=== PATIENT | male | born 1960 | race Caucasian/White ===

== ENCOUNTER → 2022-05-14 | Outpatient (CLI) | payer OTHER ==
[~2022-05-14] MED LIST: ASPIRIN 81M81 MG/TA2 PO; CARDI-OMEGA1000 MG PO; CIPRO 500MG TA500 MG PO; DUO-KAPS1 CAP PO; FLOMAX 0.40.4 MG/CAP PO; FLONASE NASAL S16 GM NS; HCTZ 25MG TAB25 MG PO; NORCO 325 MG-51 TAB PO; OSTEO-BI-FLEX 21 TAB PO; PERCOCET 325 MG1 TA2 PO; REVATIO20 MG PO; SAW PALMETTO6 X PO; [UNRECOGNIZED DRUG - OTHER] PO
== END ==
LOC: COL.RAD 12:35
DX: N28.89 Other specified disorders of kidney and ureter (principal); N20.0 Calculus of kidney
CPT/HCPCS: Q9967

== ENCOUNTER 2022-06-24 08:50 | Day surgery (SDC) | payer OTHER ==
[2022-06-23 08:16] LABS: HEMATOCRIT 44.9 % (42.0-52.0); HEMOGLOBIN 15.3 g/dl (13.5-18.0); MEAN CELL VOLUME 85 fl (80.0-100.0); MEAN CORPUSCULAR HEMOGLOBIN 29 pg (27-31); MEAN CORPUSCULAR HGB CONC 34 g/dl (33.0-37.0); MEAN PLATELET VOLUME 8.7 fl (7.4-10.4); PLATELET COUNT 217 K/mm3 (130-400); REDCELL DISTRIBUTION WIDTH-CV 13.6 % (11.5-14.5)
[2022-06-23 08:37] LABS: CALCIUM 9.6 mg/dL (8.4-10.2); CREATININE, serum 1.12 mg/dL (0.72-1.25); POTASSIUM 3.7 mmol/L (3.5-4.5)
[2022-06-24] VITALS (11 sets, daily range): BP systolic 142–162; BP diastolic 78–87; PULSE 78–93; TEMP 97.6–98.3
[~2022-06-24] VITALS: Ht 176.4 cm; Wt 112.0 kg
[2022-06-24] MEDS ORDERED: COZAAR 50MG50 MG/TAB PO (09:14)
[2022-06-24] MEDS ORDERED: ZOCOR 10MG10 MG PO (09:15)
[2022-06-24] MEDS ORDERED: COLACE 100100 MG/CAP PO (10:55)
[2022-06-24] MEDS ORDERED: NORCO 325 MG-51 TAB PO (10:55)
--- NOTE | 2022-06-24 14:47 | NUR ---
Patient arrived to the unit from PACU AT 1435. Patient alert and oriented. Oxymask in use on 2 Liters. 6 surgical incision in the abdomen dry and intact. Patient denies pain at this time. Patient and family oriented to room and the use of call nayak for an assistance.
[2022-06-25 00:02] VITALS: BP 114/67; PULSE 79; TEMP 98.3
--- NOTE | 2022-06-25 01:25 | NUR ---
SHIFT REPORT FROM MATA HA. PATIENT IN BED ON ROOM ENTRY. HS MEDS PER EMAR. TOLERATED SOME CLEARS FOR DINNER. X5 LAPS CDI WITH GLUE. LOW ABD UMBILICUS CDI AND OPEN TO AIR. WHATLEY TO DD WITH CLEAR YELLOW OUTPUT. PRN KEEGAN AND TYLENOL FOR PAIN. AMBULATED IN HALLS WITH SBA. NOT PASSING GAS YET BUT HAS REPORTED BELCHES. WEANED OFF OF OXYGEN, BUT CPAP IN PLACE AT THIS TIME. DENIES ADDITIONAL NEEDS. CALL LIGHT IN REACH.
[2022-06-25 04:56] VITALS: BP 147/78; PULSE 77; TEMP 97.5
--- NOTE | 2022-06-25 05:45 | NUR ---
WHATLEY CATHETER DISCONTINUED. 10 MLS REMOVED FROM BALLOON. PATIENT LEFT WITH URINAL TO COLLECT FIRST VOID.
[2022-06-25 07:00] LABS: BASO % 0.2 % (0.0-2.0); GRAN # 7.6 K/mm3 (1.4-6.5); GRAN % 59.1 % (42.2-75.2); HEMOGLOBIN 14.2 g/dl (13.5-18.0); LYMPH # 4.3 K/mm3 (1.2-3.4); LYMPH % 33.4 % (20.0-51.0); MEAN CELL VOLUME 84 fl (80.0-100.0); MEAN CORPUSCULAR HEMOGLOBIN 29 pg (27-31); MEAN CORPUSCULAR HGB CONC 35 g/dl (33.0-37.0); MEAN PLATELET VOLUME 9.2 fl (7.4-10.4); MONO # 0.9 K/mm3 (0.1-0.6); MONO % 6.8 % (1.7-9.3); PLATELET COUNT 250 K/mm3 (130-400); REDCELL DISTRIBUTION WIDTH-CV 13.6 % (11.5-14.5)
[2022-06-25 07:02] VITALS: BP 136/68; PULSE 79; TEMP 97.8
[2022-06-25 07:08] LABS: CALCIUM 8.9 mg/dL (8.4-10.2); CREATININE, serum 1.62 mg/dL (0.72-1.25); POTASSIUM 3.9 mmol/L (3.5-4.5)
--- NOTE | 2022-06-25 09:45 | NUR ---
Patient assessment completed. Patient alert and oriented. No complaints from patient just discomfort when coughing and adjusting on incision site. Patient able to do 6-9 repetitions of the 2000ml on incentive spirometer. Breath sounds are clear in all castro. Heart rate is regular at 80bpm. 2 INT to Right Hand intact with no reddness or drainage. Incision are clean, dry and intact. Patient able to walk length of hallway with no issues with gait, and no complaints of SOA just the discomfort from the incision site. Patient has voided 450mL so far since d/c of ricardo this AM. Patient was able to do care independently and is tolerating full liquids at this time.
--- NOTE | 2022-06-25 10:47 | NUR ---
Initial visit; Patient thanked Bioinformatics Engineer for looking in on him and offering God's blessings and to keep him in her prayers.
[2022-06-25 10:59] VITALS: BP 116/57; PULSE 81; TEMP 97.8
--- NOTE | 2022-06-25 11:12 | NUR ---
PT AND SPOUSE RECIEVED DISCHARGE INSTRUCTIONS AND QUESTIONS ANSWERED. PT LEFT UNIT AMBULATORY.
== END 2022-06-25 11:14 | disposition home or self-care (01) ==
LOC: SDCO 08:50 → SURG 14:31 → SDCO 15:15
PROVIDERS: Urology
DX: C65.1 Malignant neoplasm of right renal pelvis (principal); N20.0 Calculus of kidney; E11.9 Type 2 diabetes mellitus without complications; E66.9 Obesity, unspecified; N40.1 Benign prostatic hyperplasia with lower urinary tract symptoms; R39.12 Poor urinary stream; G47.33 Obstructive sleep apnea (adult) (pediatric); Z79.899 Other long term (current) drug therapy
CPT/HCPCS: OP; A4314; A9284; J0690; J1100; J1170; J1650; J2250; J2370; J2405; J2704; J2795; J3010; J7120

== ENCOUNTER → 2023-06-23 | Outpatient (CLI) | payer OTHER ==
[2023-06-23] VITALS (14 sets, daily range): BP systolic 132–165; BP diastolic 66–88; PULSE 72–81; TEMP 99.8
[~2023-06-23] VITALS: Ht 177.8 cm; Wt 109.0 kg
[~2023-06-23] MED LIST changes: +COLACE 100100 MG/CAP PO; +COZAAR 50MG50 MG/TAB PO; +Gelatin Sponge,Absorbable Size 12-7 SPONGE TP SCH; +ZOCOR 10MG10 MG PO; +fentaNYL 50 MCG/ML 2 ML VIAL IV SCH
== END ==
LOC: COL.RAD 08:02
DX: C64.1 Malignant neoplasm of right kidney, except renal pelvis (principal)
CPT/HCPCS: J3010

== ENCOUNTER 2023-09-26 13:16 | Inpatient (IN) | payer OTHER ==
[~2023-09-26] VITALS: Ht 177.8 cm; Wt 96.4 kg
[~2023-09-26 13:16] MED LIST changes: -Gelatin Sponge,Absorbable Size 12-7 SPONGE TP SCH; -fentaNYL 50 MCG/ML 2 ML VIAL IV SCH
[2023-09-26] MEDS ORDERED: NS 500 ML IV ONE (13:30)
[2023-09-26] MEDS ORDERED: LR 1,000 ML IV ONE (14:00)
[2023-09-26] MEDS ORDERED: dexAMETHasone 10 MG/ML VIAL IV ONE (14:00)
[2023-09-26] MEDS ORDERED: Ondansetron 4 MG/2 ML VIAL IV ONE (14:00)
[2023-09-26 14:42] LABS: HEMOGLOBIN 11.5 g/dl (13.5-18.0); MEAN CELL VOLUME 82 fl (80.0-100.0); MEAN CORPUSCULAR HEMOGLOBIN 26 pg (27-31); MEAN CORPUSCULAR HGB CONC 32 g/dl (33.0-37.0); MEAN PLATELET VOLUME 8.7 fl (7.4-10.4); PLATELET COUNT 505 K/mm3 (130-400); RED BLOOD COUNT 4.39 M/mm3 (4.20-5.60); REDCELL DISTRIBUTION WIDTH-CV 15.9 % (11.5-14.5)
[2023-09-26 14:43] LABS: HEMATOCRIT 35.8 % (42.0-52.0)
[2023-09-26] MEDS ORDERED: hydroCHLOROthiazide 25 MG TAB PO ONE (14:45)
[2023-09-26] MEDS ORDERED: Losartan 50 MG TAB PO ONE (14:45)
[2023-09-26 15:33] LABS: ALBUMIN 3.2 g/dL (3.4-4.8); BILIRUBIN,TOTAL 0.9 mg/dL (0.2-1.2); CALCIUM 9.2 mg/dL (8.4-10.2); CREATININE, serum 2.9 mg/dL (0.72-1.25); POTASSIUM 3.8 mEq/L (3.5-4.5); TOTAL PROTEIN 6.1 g/dl (6.2-8.1)
[2023-09-26 16:27] LABS: BAND 1 % (0-10); LYMPHOCYTE 19 % (20.0-51.0); MICROCYTOSIS 1+; NEUTROPHILS 70 % (42.0-75.2); PLATELET ESTIMATE INCREASED (NORMAL)
[2023-09-26 16:29] LABS: OVALOCYTES 1+
[2023-09-26 16:30] LABS: POLYCHROMASIA 1+
[2023-09-26] MEDS ORDERED: Cefepime 1 G in Water For Injection,Sterile 10 ML IV ONE (16:30)
[2023-09-26] MEDS ORDERED: hydrALAZINE 25 MG TAB PO SCH (17:00)
--- NOTE | 2023-09-26 17:33 | NUR ---
REPORT RECEIVED FROM DILCIA GONZALEZ
[2023-09-26] MEDS ORDERED: Ondansetron 4 MG/2 ML VIAL IV PRN (17:45)
[2023-09-26] MEDS ORDERED: NS 1,000 ML IV SCH (17:45)
[2023-09-26] MEDS ORDERED: *Potassium Replacement Protocol MC SCH (17:45)
[2023-09-26] MEDS ORDERED: Cefepime 1 G in Water For Injection,Sterile 10 ML IV SCH (17:45)
--- NOTE | 2023-09-26 18:40 | NUR ---
PT ON FLOOR VIA WHEELCHAIR, AT BEDSIDE. INTAKE DONE. PT REPORTS ABDOMINAL PAIN, NO PRNS ORDERED AT THIS TIME AND PT UPDATED ON THIS. TELE ON. PT DENIES NEEDS AT THIS TIME. BED IN LOWEST POSITION, CALL LIGHT IN REACH, BED ALARM ON.
[2023-09-26 19:00] VITALS: BP 163/102; PULSE 113; TEMP 97.9
[2023-09-26] MEDS ORDERED: Heparin 5,000 UNITS/ML 1 ML VIAL SQ SCH (19:10)
[2023-09-26] MEDS ORDERED: amLODIPine 10 MG TAB PO ONE (19:15)
[2023-09-26 19:30] VITALS: BP_SYST 163
[2023-09-26 19:56] VITALS: BP 167/104; PULSE 107; TEMP 97.4
--- NOTE | 2023-09-26 20:29 | NUR ---
INFORMED HOSPITALIST DR. GARDUNO OF ELEVATED BLOOD PRESSURE, NEW ORDERS TO COME.
[2023-09-26] MEDS ORDERED: Insulin Lispro (HumaLOG) SQ SCH (21:00)
--- NOTE | 2023-09-26 21:21 | NUR ---
UPON ENTERING ROOM, PATIENT IS UP USING RESTROOM. DENIES ANY PAIN OR NAUSEA AT THIS TIME. SISTER IN LAW IS AT BEDSIDE. CALL LIGHT WITHIN REACH. BED LOCKED AND IN LOW POSITION. BED ALARM ON.
--- NOTE | 2023-09-26 23:16 | NUR ---
DAYTIME BABYSITTER CALLED TO REPORT PATIENT HEART RATE IN THE 140s. RN CHECKED PATIENT AND PCT WAS ASSISTING HIM TO THE RESTROOM AND BACK TO BED
[2023-09-26 23:41] VITALS: BP 146/84; PULSE 121; TEMP 98
[2023-09-27] VITALS (11 sets, daily range): BP systolic 108–169; BP diastolic 67–93; PULSE 109–121; TEMP 97.6–98.1
[2023-09-27] MEDS ORDERED: Melatonin 3 MG TAB PO SCH
--- NOTE | 2023-09-27 00:03 | NUR ---
PATIENT CONTINUES TO BE VERY RESTLESS AND ATTEMPTING TO REMOVE HIS IV. DISCUSSED WITH HOSPITALIST AND NEW ORDER RECEIVED FOR MELATONIN 6 MG
[2023-09-27] MEDS ORDERED: Cefepime 1 G in Water For Injection,Sterile 10 ML IV SCH (04:00)
--- NOTE | 2023-09-27 05:31 | NUR ---
PATIENT HAS HAD MINIMAL URINE OUTPUT OVERNIGHT. BLADDER SCAN COMPLETED WITH READING OF LESS THAN 20 ML
[2023-09-27 06:31] LABS: HEMOGLOBIN 11.4 g/dl (13.5-18.0); MEAN CELL VOLUME 80 fl (80.0-100.0); MEAN CORPUSCULAR HEMOGLOBIN 27 pg (27-31); MEAN CORPUSCULAR HGB CONC 33 g/dl (33.0-37.0); MEAN PLATELET VOLUME 8.9 fl (7.4-10.4); PLATELET COUNT 460 K/mm3 (130-400); RED BLOOD COUNT 4.29 M/mm3 (4.20-5.60); REDCELL DISTRIBUTION WIDTH-CV 15.8 % (11.5-14.5)
[2023-09-27 06:49] LABS: HEMATOCRIT 34.2 % (42.0-52.0)
[2023-09-27] MEDS ORDERED: Glucagon 1 MG VIAL IM PRN (07:30)
[2023-09-27] MEDS ORDERED: Dextrose 50% Water 25 GM/50 ML SYRINGE IV PRN (07:30)
[2023-09-27] MEDS ORDERED: Dextrose (Glucose) 15 GM (4 x 3.75 GM) Chewable TABLET PACK PO PRN (07:30)
[2023-09-27 07:39] LABS: ANISOCYTOSIS 1+; LYMPHOCYTE 15 % (20.0-51.0); NEUTROPHILS 82 % (42.0-75.2); OVALOCYTES 1+; PLATELET ESTIMATE INCREASED (NORMAL)
--- NOTE | 2023-09-27 07:46 | NUR ---
PER PCT PTS O2 SATS LOW. UPON ENTERING PTS O2 SATS 86% ON ROOM AIR. 1L PLACED ON PT. O2 SATS 90%. O2 TURNED UP TO 1.5L NASAL CANNULA AND O2 SATS 92%. PT EEATING BREAKFAST AND DENIES NEEDS AT THIS TIME, FAMILY AT BEDSIDE. BED IN LOWEST POSITION, CALL LIGHT IN REACH, BED ALARM ON
--- NOTE | 2023-09-27 08:30 | NUR ---
PT LAYING IN BED UPON ENTERING, SISTER IN LAW AT BEDSIDE. ASSESSMENT DONE, MEDS GIVEN PER ORDER, WAITING FOR PHARMACY TO STOCK HEPARIN AT THIS TIME. PT ABLE TO ANSWER ORIENTATION QUESTIONS WITH CONFUSED SPEECH NOTED, PT REDIRECTED NEEDED. NS RUNNING AT 100 MLS/HR PER ORDER IN RIGHT FOREARM. PT ON 1.5L NASAL CANNULA. PT DENIES PAIN. BED IN LOWEST POSITION, CALL LIGHT IN REACH, BED ALARM ON
[2023-09-27] MEDS ORDERED: amLODIPine 10 MG TAB PO SCH (09:00)
[2023-09-27 09:34] LABS: BLOOD UREA NITROGEN 114 mg/dL (8-26); CHLORIDE 104 mEq/L (98-107); CREATININE, serum 4.88 mg/dL (0.72-1.25); GLUCOSE 302 mg/dL (70-99); POTASSIUM 4.4 mEq/L (3.5-4.5); SODIUM 135 mEq/L (136-145)
[2023-09-27 09:37] LABS: CALCIUM 9.1 mg/dL (8.4-10.2); MAGNESIUM 2.4 mg/dL (1.6-2.6)
--- NOTE | 2023-09-27 09:46 | NUR ---
EVON met with patient and his sister in law to complete initial assessment for discharge planning. Patient verified that he lives in [place] with his Cathleen ([phone]) and his 24 year old autistic daughter Vesna. Patient lists his as DPOA and she is to bring copy of document to hospital for patient's chart. Patient sees Dr. Cole Juarez as his PCP and uses [facility]. Patient states he uses a CPAP, shower chair, wheelchair and cane at home. Patient is currently undergoing chemo treatments for kidney cancer. Patient has slight confusion and sister in law states that this is new since he started prednisone earlier this week. Plan is to return home at time of discharge. Discharge plan: Home
--- NOTE | 2023-09-27 10:24 | NUR ---
DR JUNIOR NOTIFIED THAT PHARMACY NEEDS STOP TIME FOR MAXIPIME, PT NOW ON 1.5L NASAL CANNULA, AND WBC 25.3
--- NOTE | 2023-09-27 11:32 | NUR ---
DR JUNIOR CALLED AND NOTIFIED THAT PT IS TACHYPNEIC WITH SHALLOW RESPIRATIONS 40 PER MINUTE AND DECREASED O2 SATS. RESPIRATORY ALSO NOTIFIED. PT REPORTS INTERMITTENT SHORTNESS OF BREATH AND DENIES PAIN. THIS NURSE NOTIFIED PROVIDER OF PTS CONFUSION AND DIFFICULTY SWALLOWING PER .
[2023-09-27] MEDS ORDERED: Heparin 5,000 UNITS/ML 1 ML VIAL IV ONE (11:45)
[2023-09-27] MEDS ORDERED: Heparin 5,000 UNITS/ML 1 ML VIAL IV PRN (11:45)
[2023-09-27] MEDS ORDERED: Heparin/D5W 250 ML IV SCH (11:45)
--- NOTE | 2023-09-27 12:12 | NUR ---
CT CALLED AND NOTIFIED OF ORDERS FOR HEAD AND ABDOMEN/PELVIS CT
[2023-09-27 12:54] LABS: PARTIAL THROMBOPLASTIN TIME 26.2 SECONDS (26.0-37.0)
--- NOTE | 2023-09-27 13:05 | NUR ---
PT BACK FROM CT, IV FLUDIS RESTARTED. PT REPORTS 10/10 BACK PAIN, NO PRNS ORDERED AND DR VERNON JACOBS
--- NOTE | 2023-09-27 13:13 | NUR ---
DR JUNIOR CALLED AND NOTIFIED OF ELEVATED DDIMER, BNP AND TROPONIN. WAITING FOR HEAD AND ABD/PELVIS CT RESULTS AT THIS TIME
--- NOTE | 2023-09-27 14:20 | NUR ---
22G IV STARTED TO LEFT FOREARM BY DILCIA GREENWOOD
[2023-09-27 15:06] LABS: ARTERIAL BLD GAS O2 SATURATION 90.1 % (92-100); ARTERIAL BLD GAS TCO2 CT 16.8; ARTERIAL BLOOD GAS BASE EXCESS -7.5 (-2-2); ARTERIAL BLOOD GAS PCO2 27.6 mmHg (35-45); ARTERIAL BLOOD GAS PO2 61.4 mmHg (80-100); ARTERIAL BLOOD GAS pH 7.38 (7.35-7.45)
[2023-09-27] MEDS ORDERED: Doxycycline Hyclate 100 MG in NS 150 ML IV SCH (16:00)
--- NOTE | 2023-09-27 16:00 | NUR ---
ATTEMPTED TO INSERT 16FR WHATLEY WITH NO URINE NOTED. PT BLADDER SCANNED WITH LESS THAN 100 MLS OF URINE NOTED. 14FR COUDE WHATLEY PLACED, 10 MLS OF WATER INSERTED INTO BALLOON, PT TOLERATED WELL. SMALL AMOUNT OF BLOOD TINGED URINE NOTED. WHATLEY SECURED TO RIGHT THIGH. PT DENIES NEEDS. BED IN LOWEST POSITION, CALL LIGHT IN REACH, BED ALARM ON
--- NOTE | 2023-09-27 16:47 | NUR ---
CRITICAL TROP REPORTED TO .
[2023-09-27] MEDS ORDERED: Albuterol/Ipratropium 3 MG-0.5 MG/3 ML Neb Soln IH SCH (17:00)
--- NOTE | 2023-09-27 20:23 | NUR ---
PATIENT IS RESTING IN BED WITH AT BEDSIDE. CURRENTLY DENIES ANY BACK PAIN, ALSO DENIES ANY NAUSEA AT THIS TIME. CALL LIGHT IS WITHIN REACH. BED LOCKED AND IN LOW POSITION. BED ALARM ON
--- NOTE | 2023-09-27 21:32 | NUR ---
HEP XA IS 0.78, HEPARIN DECREASED BY 1.5 ML/HR PER PROTOCOL. REPEAT HEP XA TO BE DONE AT 0315.
[2023-09-28] VITALS (14 sets, daily range): BP systolic 92–137; BP diastolic 56–84; PULSE 60–121; TEMP 97.6–100.4
[2023-09-28 07:27] LABS: ALBUMIN 2.7 g/dL (3.4-4.8); CALCIUM 8.3 mg/dL (8.4-10.2); CREATININE, serum 6.73 mg/dL (0.72-1.25); MAGNESIUM 2.5 mg/dL (1.6-2.6); POTASSIUM 4.1 mEq/L (3.5-4.5)
[2023-09-28 08:30] LABS: HEMATOCRIT 37.5 % (42.0-52.0); HEMOGLOBIN 12.1 g/dl (13.5-18.0); MEAN CELL VOLUME 84 fl (80.0-100.0); MEAN CORPUSCULAR HEMOGLOBIN 27 pg (27-31); MEAN CORPUSCULAR HGB CONC 32 g/dl (33.0-37.0); MEAN PLATELET VOLUME 9.5 fl (7.4-10.4); PLATELET COUNT 484 K/mm3 (130-400); RED BLOOD COUNT 4.47 M/mm3 (4.20-5.60); REDCELL DISTRIBUTION WIDTH-CV 16.4 % (11.5-14.5)
--- NOTE | 2023-09-28 08:30 | NUR ---
Assessment complete. Pt alert to self and only. Patient states he is in [place] and it was February but unable to recite year. Reorients easily. Patient pleasant but restless. O2 3L/NC. Respirations between 30-40 per minute. Sinus Tach. Fall precautions in place. No urinary output noted in [place]. ZURI at bedside. Dr. Ramirez made aware of patient current condition- currently making rounds.
--- NOTE | 2023-09-28 08:40 | NUR ---
US at bedside completing venous doppler.
[2023-09-28] MEDS ORDERED: methylPREDNISolone Sod Succ 40 MG/ML VIAL IV SCH (09:00)
--- NOTE | 2023-09-28 09:00 | NUR ---
Pt to VQ scan via w/c.
[2023-09-28 09:04] LABS: PHOSPHOROUS 6.2 mg/dL (2.3-4.7)
--- NOTE | 2023-09-28 09:50 | NUR ---
Pt returns from VQ scan. and ZURI at bedside. Fall precautions in place. Continues to be confused.
[2023-09-28 09:55] LABS: BAND 0 % (0-10); LYMPHOCYTE 18 % (20.0-51.0); NEUTROPHILS 77 % (42.0-75.2)
[2023-09-28 09:56] LABS: ANISOCYTOSIS 1+; HYPOCHROMIA 1+; PLATELET ESTIMATE INCREASED (NORMAL)
[2023-09-28] MEDS ORDERED: LORazepam 2 MG/ML 1 ML VIAL IV ONE (10:45)
--- NOTE | 2023-09-28 11:25 | NUR ---
Patient moved from 309 to 355 due to increased confusion, restlessness and increasing agitation. Ativan administered as a now order at 1103. Pt less restless but still has tachypnea. Oxymask placed at 4L/NC to keep SpO2 >90%. Temp 99.1. Cool cloth applied to head. Continues to be ST, current pulse 118. Plan is for HD cath early this afternoon then dialysis. IVF d/c'd this morning. No urine output this shift-only red urine in tubing. and ZURI at bedside.
--- NOTE | 2023-09-28 12:23 | NUR ---
Pt continues to be restless, pulling off oxymask. NC placed at 5L/NC. MEWS score 5. CAT call placed. Travis (Respiratory Therapy), Linsey, RN (ICU Charge) and Juana RN (House Supervisior), Katerina, RN (charge) present. All in agreement to continue with current plan for HD cath and dialysis to follow. This nurse discussed code status with , Cathleen- who states she would like to change the patient's code status to DNR since his condition has worsen so quickly. Cathleen tearful- reassurance provided and she verbalizes understanding of today's plan for HD cath placement with dialysis to follow. Denies questions or needs at this time. Dr. Ramirez notified and order rec'd for ABG.
--- NOTE | 2023-09-28 12:30 | NUR ---
Heparin discontinued per MD order.
--- NOTE | 2023-09-28 12:50 | NUR ---
Patient to recyclable materials sorter via bed for HD cath placement. Dr. Ramirez in room speaking with spouse regarding code status at this time.
[2023-09-28] MEDS ORDERED: Heparin 1,000 UNITS/ML 10 ML Multi-Dose VIAL IV SCH ×3 (13:47→15:00)
--- NOTE | 2023-09-28 13:51 | NUR ---
See merge for all medication, assessment,intervention, and vital sign times. Dr. Kwong advises prior to procedure no antibiotic, patient already receiving antibiotics. Dr. Kwong decides no sedation to be used for procedure, patient already sleepy from ativan this morning.
--- NOTE | 2023-09-28 14:06 | NUR ---
Bedside report completed with Luz HA and Mattie HA. Call light within reach, first set of vitals reviewed, site intact.
--- NOTE | 2023-09-28 14:15 | NUR ---
Patient returned to room from Route Sales Trainee at approximately 1400. Drowsy but easily arouses to voice. Restless. HD cath to right IJ- CDI. Mitts placed on bilateral hands to avoid patient pulling at newly placed HD cath. O2 5L/NC. Respirations continue to be shallow and 30-40 per minute. Continues to be tachycardia. SpO2 >90% on 5L/NC and blood pressures soft- see flowsheet. and ZURI at bedside.
--- NOTE | 2023-09-28 14:38 | NUR ---
Phone call to Dr. Ramirez requesting patient be transferred to ICU- condition not improving and still waiting for dialysis. Attempted to have patient directly sent from Party Plan Salesperson to Dialysis but Ed, the dialysis nurse, stated he needed to speak with Dr. Dickson first- which was at approximately 1340. After checking back with Ed at approximately 1430, he was still attempting to get ahold of Dr. Dickson.
[2023-09-28] MEDS ORDERED: Albumin (Human) 100 ML IV SCH (15:00)
[2023-09-28] MEDS ORDERED: Heparin 1,000 UNITS/ML 10 ML Multi-Dose VIAL ICA SCH (15:00)
--- NOTE | 2023-09-28 15:30 | NUR ---
Patient transferred ICU 7 via bed by this nurse. Patient transported on 5L/NC. Mitts to bilateral hands. Patient still restless attempting to pull them off. Patient still confused but pleasant. Report given to DILCIA Portillo. CXR not completed post HD placement- called radiology and placed order for portable CXR. and ZURI in waiting room and updated and instructed ICU nurse would come get them once patient is settled. Only first set of post op vital signs captured so unable to record remainder of post op vitals at this time.
--- NOTE | 2023-09-28 16:00 | NUR ---
Spoke with Travis to confirm if ABG had been completed. Travis reports patient was being taken to clinical laboratory science professor at the time he was going to obtain specimen. Notified Travis that patient is now in ICU 7 so it can be drawn now. DILCIA Stiles in ICU notified.
[2023-09-28 17:08] LABS: ARTERIAL BLD GAS O2 SATURATION 94.9 % (92-100); ARTERIAL BLD GAS TCO2 CT 20.7; ARTERIAL BLOOD GAS BASE EXCESS -2.2 (-2-2); ARTERIAL BLOOD GAS HCO3 19.9 meq/L (22-26); ARTERIAL BLOOD GAS PCO2 26.5 mmHg (35-45); ARTERIAL BLOOD GAS PO2 72.4 mmHg (80-100); ARTERIAL BLOOD GAS pH 7.49 (7.35-7.45)
--- NOTE | 2023-09-28 18:09 | NUR ---
Patient was brought down from the medical unit and report was given from DILCIA Phelps. Patient has been experiencing some fluid overload symptoms, breathing upwards of 30-40 a minute, labored. He is alert to his name and birthday but otherwise confused. Needs repeated redirection, biting mittens, and pulling at lines. At this time he does have family bedside to include his and nieces. Patient did get dialysis this evening and 300 ml was removed. X2, 50g of Albumin was given predialysis. His lungs are diminished in the bases and some crackles are heard. No urine has been made. I did try to flush the catheter to see if clots may be causing paula, 30 ml of NS in and 30 mls out. Blood pressure has been 100's systolic before, during and after dialysis. Dr. Jacques did have a conversation with the family about his goals of care. At this time he is thinkig that a Pallative care meeting needs to happen tomorrow at 0830 to consider confort care/ hospice before he is potentially dialysised tomorrow 09/28. No levophed has been started, just monitoring for now. Surgeon contacted, but it not urgent at the moment.
[2023-09-28] MEDS ORDERED: cefTAZidime 1 GM in Water For Injection,Sterile 10 ML IV SCH (21:00)
--- NOTE | 2023-09-28 23:41 | NUR ---
AT REASSMWNT AT 2130 PATIENT HOLDS CONVERSATION, NOT ORIENTTED TO TIME OR PLACE, IS NOT THrashing about is calm requesting mitts to be removed and to go home. patient seems to understand why he is here and stays calm
[2023-09-28 23:52] LABS: HEPATITIS B CORE AB,TOTAL Negative (Negative); HEPATITIS B SURFACE ANTIBODY <2.0 (()); HEPATITIS B SURFACE ANTIGEN Negative (Negative); HEPATITIS C VIRUS ANTIBODY Negative (Negative)
[2023-09-29] VITALS (7 sets, daily range): BP systolic 105–144; BP diastolic 73–92; PULSE 96–105; TEMP 98.9–100.2
--- NOTE | 2023-09-29 01:13 | NUR ---
NO URINE OUT PUT OF YET
[2023-09-29] MEDS ORDERED: Cefepime 1 G in Water For Injection,Sterile 10 ML IV SCH (04:00)
[2023-09-29 07:06] LABS: HEMOGLOBIN 10.3 g/dl (13.5-18.0); MEAN CELL VOLUME 82 fl (80.0-100.0); MEAN CORPUSCULAR HEMOGLOBIN 27 pg (27-31); MEAN CORPUSCULAR HGB CONC 33 g/dl (33.0-37.0); MEAN PLATELET VOLUME 9.2 fl (7.4-10.4); RED BLOOD COUNT 3.89 M/mm3 (4.20-5.60); REDCELL DISTRIBUTION WIDTH-CV 16.7 % (11.5-14.5)
[2023-09-29 07:15] LABS: HEMATOCRIT 31.7 % (42.0-52.0); PLATELET COUNT 319 K/mm3 (130-400)
[2023-09-29 07:34] LABS: ALBUMIN 2.6 g/dL (3.4-4.8); CALCIUM 7.9 mg/dL (8.4-10.2); CREATININE, serum 6.9 mg/dL (0.72-1.25); PHOSPHOROUS 4.4 mg/dL (2.3-4.7); POTASSIUM 4.2 mEq/L (3.5-4.5)
[2023-09-29 07:54] LABS: ANISOCYTOSIS 1+; BAND 3 % (0-10); EOSINOPHIL 1 % (0-4); LYMPHOCYTE 18 % (20.0-51.0); METAMYELOCYTE 1 % (0-0); NEUTROPHILS 73 % (42.0-75.2)
--- NOTE | 2023-09-29 08:30 | NUR ---
Palliative care consult completed with family at bedside. Patient's (Cathleen), [id number] & two nieces present with Dr. Zia Galloway & this author. Dr. Galloway discussed current diagnosis, problems, treatments & diagnostic test results. Provided with two options - aggressive therapy & comfort care. Discussed ongoing chronic diagnosis, chemo/immunotherapy & recurrent mass noted on kidney. Discussed KYARA with need for dialysis & it is undetermined at this time if the dialysis will be a short-term or long-term need. All questions answered by Dr. Galloway prior to his departure from room. This RN discussed two options further with family. Specifics related to comfort care discussed to include starting comfort care in hospital & then transitioning to hospice house, home with hospice or a longterm with hospice. 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 Family aware of options, but do not feel that they can make an informed decision until they know about dialysis in the future. Discussed what a meaningful recovery would look like for the patient & goals or milestones that he would like to achieve. Family very open that the couple has a young adult daughter at home that is autistic requiring a high level of care. Discussed that patient had been requiring more help with ADLs recently & that was taxing on Cathleen. Reiterated that Dr. Galloway felt that the patient may need long-term acute or even post-acute care outside of the home at discharge. All questions answered & support provided. Family did ask about Scientific Manager rounds. Dr. Dickson was contacted. Lab results for today reported & MD stated that he would contact dialysis nurse about a treatment today. Dr. Dickson stated that he would make tele rounds after 1630. Family provided with an update. Family also asked about echocardiogram results which were not available in the EMR at the time of the discussion. Update provided to family. Patient was alert when Dr. Galloway was present at bedside. He appeared uncomfortable & was repositioned in the bed which caused him to fall asleep quickly. He was not awake for the majority of the conversation with this RN, so did not participate in the conversation or offer advice. He did arouse at one point to which his got closer to him & reported that the patient stated that he "wanted everything done." Patient confused intermittently throughout the morning with mitts on for line/tube protection. Update about conversation provided to Dr. Miguel RN.
[2023-09-29] MEDS ORDERED: Albumin (Human) 100 ML IV SCH ×2 (09:30→17:30)
[2023-09-29] MEDS ORDERED: Heparin 1,000 UNITS/ML 10 ML Multi-Dose VIAL IV SCH ×2 (09:30→17:30)
[2023-09-29] MEDS ORDERED: Heparin 1,000 UNITS/ML 10 ML Multi-Dose VIAL ICA SCH ×2 (09:30→17:30)
--- NOTE | 2023-09-29 09:45 | NUR ---
Patient remains with mittens on to protect medical devices, silva still has no output for overnight. Patient is more alert this morning, sitting up and talking, holding conversation, then has random/ confused moments.
--- NOTE | 2023-09-29 09:51 | NUR ---
log raft worker was informed pt's family had a goals of care discussion this morning with Dr. Zia Galloway. ICU Director Charmaine reports family would like to continue being agressive and see how diaylsis goes. Discharge Plan: tbd
[2023-09-29] MEDS ORDERED: Acetaminophen 500 MG TAB PO PRN (17:45)
[2023-09-29] MEDS ORDERED: Atropine 1% Ophth Soln 2 ML BOTTLE SL PRN (18:45)
[2023-09-29] MEDS ORDERED: LORazepam 2 MG/ML 1 ML VIAL IV PRN (18:45)
[2023-09-29] MEDS ORDERED: Morphine Oral Concentrate 20 MG/ML UD SL PRN (18:45)
[2023-09-29] MEDS ORDERED: LORazepam 0.5 MG TAB PO PRN (18:45)
[2023-09-29] MEDS ORDERED: Morphine 4 MG/ML VIAL IV PRN (18:45)
[2023-09-29] MEDS ORDERED: Scopolamine 1 MG Delivered 3-Day PATCH TD SCH (18:45)
--- NOTE | 2023-09-29 20:06 | NUR ---
Pallative care meeting happened today with and other family present. Decision was undecided until we were able to perform additional dialysis to see if he/ his kidney would respond in a positive manner. The family had mainly questions for Dr. Dickson and they were directed more towards how dialysis would effect his life quality and overall outcome. Second time for dialysis was not tolerated as well as the previous day. Blood pressure did not hold and levophed needed to be started, temperature spiked to 102.9, chills, diaphoretic, confusion, and no urine output at all. Levophed started around 1507 and he responded well to it. Both IVs infiltrated, bilaterally, then a new IV was placed in his right a/c. By 1900, family had made the decision to move to comfort care and withdrawl care. Levophed was turned off and comfort measures were started. Family is bedside and is at peace with their decision. Passed off report to overnight associate. At this time, questions have been answered, silva has been removed per family request.
--- NOTE | 2023-09-29 22:09 | NUR ---
PT IS CURRENTLY ON COMFORT CARE. HIS FAMILY IS AT THE BEDSIDE. THE PATIENT IS CURRENTLY AWAKE AND SPEAKING WITH HIS FAMILY.
[2023-09-30] VITALS: PULSE 101
--- NOTE | 2023-09-30 05:23 | NUR ---
THE PATIENT PEACEFULLY SURROUNDED BY HIS FAMILY MEMBERS. HIS WAS AT THE BEDSIDE. DR. SPANN WAS NOTIFIED.
--- NOTE | 2023-09-30 05:57 | NUR ---
Contacted [facility] and spoke with Makenzie. Patient is not a candidate for organ or tissue at this time, but not to release body to home until contacted by [facility]. Family requests [facility] in [place] for services.
--- NOTE | 2023-09-30 06:58 | NUR ---
Received call from [facility] at 0645, patient can be released to home. Joseph Pena in [place] contacted at this time.
== END 2023-09-30 09:05 | disposition expired | DRG 871 ==
LOC: COL.ER 13:16 → ICU 16:33 → MEDICAL 16:33 → ICU 09-28 15:15
PROVIDERS: Emergency Medicine; Internal Medicine Nephrology; ADMIT Internal Medicine
DX: A41.9 Sepsis, unspecified organism (principal); G93.41 Metabolic encephalopathy; J18.9 Pneumonia, unspecified organism; D84.9 Immunodeficiency, unspecified; N17.9 Acute kidney failure, unspecified; C64.9 Malignant neoplasm of unspecified kidney, except renal pelvis; E44.1 Mild protein-calorie malnutrition; N18.30 Chronic kidney disease, stage 3 unspecified; I10 Essential (primary) hypertension; Z66 Do not resuscitate
CPT/HCPCS: A9540-JZ; A9567-JZ; J0692; J0713; J1100; J1644; J1815; J2060; J2270; J2405; J7030; J7060; J7120; P9047; Q3014